=== PATIENT | male | born 1965 | race Caucasian/White ===

== ENCOUNTER 2023-05-19 16:18 | Outpatient (AMB) | payer OTHER, SELFPAY ==
--- NOTE | 2023-05-19 16:23 | A.OFFPC_ITS ---
Vital Signs 05/19/23 16:24 Height 5 ft 5 in Weight 145 lb BMI 24.1 BP 170/100 H Blood Pressure Location Lt brachial Position Sitting Intake Visit Reasons: check up Intake Note: Patient here for anxiety, shingles, right hand wound Data Typist Required: No Accompanied by: Self / Same As Patient Allergies No Known Allergies Allergy (Verified 05/19/23 16:49) Medication List - Last Reconciled 05/19/23 by Stu Sawyer MD methadone 115 mg PO DAILY Tobacco use date assessed: 11/25/22 Dental Screening Dental Screen Date: 05/19/23 Did you have a dental visit in the last 12 months?: No Did you have a dental problem in the last 6 months where you did not have access to dental care?: No Was dental information given to patient?: Patient declined HPI check up HPI Details Patient comes in today for his follow up visit - he was last seen by me via telehealth visit on 02/14/2020 and was last seen here in-person on 11/10/2019 States that he currently has a slightly painful and itchy area of rash over his right thigh that first appeared over the front of his thigh yesterday and has since then spread out completely to now cover the entire front and back of his thigh - thinks that he may have shingles Relates that he has had recurrent issues with forearm abscesses over the past several months with some of them requiring operative I & D and his most recent one involved MRSA and he's had to be on ABx Tx for over a full month Went to the ER at [facility] last month for what he thought was a developing left forearm abscess but work ups done in the ER were negative and he was discharged home afterwards with instructions to continue daily wound care and to seek medical attention if symptoms get worse States that shin left forearm symptoms have since gradually subsided although he still has an incomplete but almost healed wound on his forearm States that he is currently on Methadone at 115 mg QD - goes to [facility] in [place] and gets take home Methadone doses from there twice a week Notes that he has been experiencing increasing anxiety again lately and would like to get a refill on his Clonazepam Rx, which he has not had in a while now He denies any fever, headaches or dizziness Denies any chest pains, no SOB No nausea/vomiting, no abdominal pain No change in bowel habits noted - states that he does not have any significant constipation from his Methadone as he's had his gall bladder surgically removed years ago and the diarrhea/loose stools that he gets from this effectively cancels out the constipation that he would get from his Methadone Rx Adds that he has not taken his Lisinopril in a while as his Rx ran out and needs this refilled if he should get back on it FOR[facility]LY [facility], [facility] Medical History (Updated 05/19/23 @ 19:52 by Stu Sawyer MD) Smoker Anxiety Hx of intravenous drug use, in remission Pure hypercholesterolemia Benign essential hypertension Leukocytosis (leucocytosis) Surgical History History of surgery on arm History of cholecystectomy History of hand surgery History of splenectomy Family History Father Stroke Mother Bladder cancer Sister No problems noted. Son No problems noted. Son No problems noted. Daughter No problems noted. Daughter No problems noted. Social History Housing: House Alcohol intake: former Patient Tobacco Use Status: Current everyday Tobacco user Tobacco use type: Cigarette Cigarettes Per Day: 6 e-Cigarette/Vaping Use: Never Used Second Hand Smoke Exposure: No service: No Current occupational status: previously employed Current occupational exposures/hazards: No Cognitive needs: No Hearing needs: No Vision needs: No Questionnaire Thrive Questionnaire Date Thrive assessed: 11/25/22 KARIE-7 AMB Questionnaire KARIE-7 Date KARIE - 7 assessed: 11/25/22 Source: Developed by Drs. Bill Lorenzana, Zenaida Perez, Waqar Barclay and colleagues, with an educational chacorta from [employer]. Review of Systems Const Denies chills, Denies fatigue, Denies fever(s) and Denies headache(s) ENT Denies dysphagia, Denies dizziness, Denies otalgia, Denies headache(s), Denies neck pain, Denies odynophagia and Denies sore throat Card Denies chest pain, Denies palpitations and Denies dyspnea Resp Denies cough and Denies dyspnea GI Denies abdominal pain, Denies constipation, Denies dysphagia, Denies heartburn, Denies diarrhea, Denies nausea, Denies odynophagia and Denies vomiting Denies dysuria, Denies nocturia and Denies urinary frequency Musc Denies back pain and Denies neck pain Skin/Breast Details: (+) scattered patchy rash/lesions over the entire right thigh; healing surgical wound over the vlar aspect of the left forearm - no drainage noted from the wound Neuro Denies dizziness and Denies headache(s) Psych Reports anxiety Endo Denies fatigue and Denies palpitations Physical exam (Primary Care) Vital Signs: Last Vital Signs BP 170/100 H 05/19/23 16:24 BMI result Body Mass Index 24.1 Tobacco/Smoking Status: Tobacco use Status Tobacco use date assessed 11/25/22 05/19/23 16:30 Patient Tobacco Use Status Current everyday Tobacco 05/19/23 16:30 Tobacco use type Cigarette 05/19/23 16:30 e-Cigarette/Vaping Use Never Used 05/19/23 16:30 Thrive Assessment: Date of Thrive Assessment Date Thrive assessed 11/25/22 05/19/23 16:30 Const General: no acute distress and alert HENMT Ears: TM's normal bilaterally and EAC's normal Throat: Yes posterior oropharynx normal and Yes tonsils normal (no TP congestion) Neck Neck: Yes no lymphadenopathy and Yes supple Resp Auscultation: clear to auscultation bilaterally, no rales and no wheezes Cardio Rate: regular rate Rhythm: regular rhythm Heart sounds: no murmurs GI Palpation (GI): Soft to palpation and nontender Auscultation: normal bowel sounds Back/Spine/Pelvis Thoracic/Lumbar Spine: No lumbar spinal tenderness Skin Other: (+) scattered erythematous patchy vesiculopustular lesions over the entire right thigh; (+) healing surgical wound over the volar aspect of the left forearm, with no drainage or erythema noted Extrem General: Yes no clubbing, cyanosis or edema Assessment and Plan Assessment & Plan (1) Thigh shingles: Code(s): B02.9 - Zoster without complications Plan: Will start him on Valacyclovir 1 gm Q 8 hours x 7 days and Gabapentin 300 mg TID Advised that he should caution his girlfriend also to watch out for any signs or symptoms of shingles on her for the next week or two and to seek medical atte ntion with her PCP STEPHANIE should any of these appear (2) Benign essential hypertension: Code(s): I10 - Essential (primary) hypertension Plan: Reinforced low sodium diet - goal is systolic BP of 120 mm or less Will start him back on Lisinopril 5 mg QD - advised that his current BP is too high and he should go back on his BP med STEPHANIE (3) Pure hypercholesterolemia: Code(s): E78.00 - Pure hypercholesterolemia, unspecified Plan: Reinforced low cholesterol diet Will recheck his labs and fasting lipids STEPHANIE for follow up (4) Hx of intravenous drug use, in remission: Comment: used to inject heroin Code(s): F19.91 - Other psychoactive substance use, unspecified, in remission Plan: Continue Methadone 115 mg QD Follow up with the Methadone clinic (goes to [facility] in [place]) as scheduled (5) Anxiety: Code(s): F41.9 - Anxiety disorder, unspecified Plan: Will start him back for now on Clonazepam 0.5 mg 1 to 2 times a day as needed - reminded to take these only on an as needed basis (6) Smoker: Code(s): F17.200 - Nicotine dependence, unspecified, uncomplicated Plan: Counseled again on smoking cessation Plan Follow up in 6 months or PRN Orders: Orders TSH reflex Free T4 Today E78.00 - Pure hypercholesterolemia, unspecified Vitamin D 25-OH Total Today E55.9 - Vitamin D deficiency, unspecified Vitamin B12 and Folate Today E53.8 - Deficiency of other specified B group vitamins Complete Blood Count Auto Diff Today I10 - Essential (primary) hypertension Lipid Panel Today E78.00 - Pure hypercholesterolemia, unspecified Comprehensive [place]. Panel Fast Today E78.00 - Pure hypercholesterolemia, unspecified UA CC w/rflx Micro + Cult Today R30.0 - Dysuria Prostate Specific Antigen Today N40.0 - Benign prostatic hyperplasia without lower urinary tract symptoms Medications: New 2 valacyclovir 1,000 mg PO Q8H 7 days 21 tabs 0RF B02.9 - Zoster without complications gabapentin 300 mg PO TID 30 days 90 caps 1RF valacyclovir 1,000 mg PO Q8H 7 days 21 tabs 0RF B02.9 - Zoster without complications gabapentin 300 mg PO TID 30 days 90 caps 1RF Changed From clonazepam 0.5 mg PO BID 30 days PRN 60 tabs 0RF anxiety To clonazepam 0.5 mg PO .QD-BID PRN 30 tabs 0RF anxiety From lisinopril 5 mg PO DAILY 30 days 30 tabs 1RF I10 - Essential (primary) hypertension To lisinopril 5 mg PO DAILY 90 days 90 tabs 1RF I10 - Essential (primary) hypertension Refilled clonazepam 0.5 mg PO .QD-BID PRN 30 tabs 0RF anxiety Coding Level of Care Code Est Pt Level 4 (83247) Diagnoses Thigh shingles B02.9 Benign essential hypertension I10 Pure hypercholesterolemia E78.00 Hx of intravenous drug use, in remission F19.91 Anxiety F41.9 Smoker F17.200
[2023-05-19 16:24] VITALS: BP 170/100; BMI 24.1
== END 2023-05-19 17:08 | disposition home or self-care (01) ==
PROVIDERS: PCP Internal Medicine; Visit Provider Internal Medicine
DX: I10 Essential (primary) hypertension (principal); F41.9 Anxiety disorder, unspecified; F17.210 Nicotine dependence, cigarettes, uncomplicated; B02.9 Zoster without complications; E78.00 Pure hypercholesterolemia, unspecified; F19.91 Other psychoactive substance use, unspecified, in remission
CPT/HCPCS: 99214